=== PATIENT | male | born 1960 | race Caucasian/White ===

== ENCOUNTER 2016-12-03 10:28 | Emergency (ER) | payer MEDICAID ==
[~2016-12-03] VITALS: Ht 167.6 cm; Wt 65.8 kg
[2016-12-03] MEDS ORDERED: METOPROLOL PO (10:38)
[2016-12-03] MEDS ORDERED: HYDROCODONE/APAP 5-325MG TABLET PO ONE (10:45)
[2016-12-03] MEDS ORDERED: HYDROCODONE/APAP 5-325MG TABLET ONE (10:53)
[2016-12-03 10:58] LABS: *BILIRUBIN,URIN NEGATIVE (NEGATIVE); *BLOOD, URINE NEGATIVE (NEGATIVE); *CLARITY,URINE CLEAR (CLEAR); *COLOR,URINE YELLOW (YELLOW); *PROTEIN,URINE NEGATIVE (NEGATIVE); *UROBILINOGEN,URINE 0.2 E.U./dl (NORMAL); LEUKOCYTE ESTERASE ,URINE NEGATIVE (NEGATIVE); NITRITE, URINE NEGATIVE (NEGATIVE)
[2016-12-03 11:13] LABS: UGLUCOSE 2+ (NEGATIVE)
[2016-12-03 11:20] LABS: WBC,URINE 0-3 /HPF (0-3)
[2016-12-03 11:21] LABS: SQUAMOUS EPITHELIAL CELL,UR FEW /HPF (NONE SEEN)
[2016-12-03 11:22] LABS: *KETONES,URINE 1+ (NEGATIVE)
--- NOTE | 2016-12-03 11:54 | NUR ---
Patient discharged to home in stable conditon. Written and verbal after care instructions given. Patient verbalizes understanding of instructions. Stressed follow up with pmd.
[2016-12-03 11:55] VITALS: BP 158/93
== END 2016-12-03 11:55 | disposition home or self-care (01) ==
LOC: ER 10:28
DX: M54.40 Lumbago with sciatica, unspecified side (principal); I10 Essential (primary) hypertension
CPT/HCPCS: 72100; 81001; 82962; 99285; A4663